=== PATIENT | male | born 1955 | race Caucasian/White ===

== ENCOUNTER 2017-11-09 00:09 | Emergency (ER) | payer OTHER ==
[~2017-11-09] VITALS: Ht 172.7 cm; Wt 164.6 kg
[2017-11-09] MEDS ORDERED: PRADAXA150 MG PO (00:40)
[2017-11-09] MEDS ORDERED: CARVEDILOL25 MG PO (00:41)
[2017-11-09] MEDS ORDERED: TORSEMIDE20 M1 PO (00:43)
[2017-11-09] MEDS ORDERED: CHLORTHALID25 MG PO (00:43)
[2017-11-09] MEDS ORDERED: LISINOPRIL20 MG PO (00:44)
[2017-11-09] MEDS ORDERED: K-DUR/KLOR-CON20 MEQ PO (00:45)
[2017-11-09] MEDS ORDERED: ASPIRIN81 MG PO (00:53)
[2017-11-09] MEDS ORDERED: ALLOPURINOL100 MG PO (00:54)
[2017-11-09] MEDS ORDERED: MAGNESIUM250 M2 PO (00:55)
[2017-11-09] MEDS ORDERED: PRAVASTATIN20 MG PO (00:55)
[2017-11-09 01:28] LABS: URINE BILIRUBIN - DIPSTICK NEGATIVE (NEGATIVE); URINE BLOOD DIPSTICK NEGATIVE (NEGATIVE); URINE CLARITY CLEAR; URINE COLOR YELLOW; URINE GLUCOSE - DIPSTICK NEGATIVE (NEGATIVE); URINE KETONE NEGATIVE (NEGATIVE); URINE LEUK ESTERASE NEGATIVE (NEGATIVE); URINE NITRITE - DIPSTICK NEGATIVE (Negative); URINE PH 5.5 (4.5-8.0); URINE PROTEIN - DIPSTICK TRACE mg/dL (NEG-TRACE); URINE SPECIFIC GRAVITY 1.015; URINE UROBILINOGEN - DIPSTICK 0.2 E.U./dL (0.2)
[2017-11-09 01:39] LABS: HEMATOCRIT 29.4 % (39.0-50.0); HEMOGLOBIN 8.5 g/dl (14.0-18.0); IMMATURE GRANULOCYTES 0.4 % (0.0-1.0); MEAN CELL VOLUME 85.7 fL CALC (80.0-100.0); MEAN CORPUSCULAR HGB 24.8 pG CALC (26.0-32.0); MEAN CORPUSCULAR HGB CONC 28.9 g/L CALC (32.0-36.0); NEUT# 5.9 thou/uL (1.82-7.42); RED BLOOD COUNT 3.43 mill/uL (4.70-6.10); RED CELL DISTRI WIDTH 17.2 % (11.5-15.5)
[2017-11-09 01:49] LABS: ALBUMIN 2.6 g/dL (3.2-5.0); BILIRUBIN, TOTAL 0.6 mg/dL (0.0-1.4); CALCIUM 8.4 mg/dL (8.4-10.2); CREATININE 2.9 mg/dL (0.7-1.3); POTASSIUM 4.5 mmol/l (3.5-5.1); TOTAL PROTEIN 5.1 g/dL (6.3-8.2)
[2017-11-09 02:04] LABS: ACT PARTIAL THROMBO TIME 36.2 SECONDS (20.0-32.5); INTERNATIONAL NORMALIZED RATIO 1.3 RATIO (0.7-1.3); PROTHROMBIN TIME 14.6 SECONDS (9.0-12.5)
[2017-11-09 03:50] VITALS: BP 107/58
== END 2017-11-09 04:04 | disposition short-term general hospital (02) | DRG 292 ==
LOC: ED 00:09
PROVIDERS: Emergency Medicine
DX: I50.9 Heart failure, unspecified (principal); I25.810 Atherosclerosis of coronary artery bypass graft(s) without angina pectoris; Z95.1 Presence of aortocoronary bypass graft; I48.91 Unspecified atrial fibrillation; I12.9 Hypertensive chronic kidney disease with stage 1 through stage 4 chronic kidney disease, or unspecified chronic kidney disease; N18.9 Chronic kidney disease, unspecified; D64.9 Anemia, unspecified; N50.89 Other specified disorders of the male genital organs; R22.43 Localized swelling, mass and lump, lower limb, bilateral; R06.02 Shortness of breath; Z95.0 Presence of cardiac pacemaker

== ENCOUNTER 2019-10-12 12:50 | Inpatient (IN) | payer SELFPAY ==
[~2019-10-12] VITALS: Ht 172.7 cm; Wt 140.4 kg
[~2019-10-12 12:50] MED LIST: ALLOPURINOL100 MG PO; ASPIRIN81 MG PO; CARVEDILOL25 MG PO; CHLORTHALID25 MG PO; K-DUR/KLOR-CON20 MEQ PO; LISINOPRIL20 MG PO; MAGNESIUM250 M2 PO; PRADAXA150 MG PO; PRAVASTATIN20 MG PO; TORSEMIDE20 M1 PO
--- NOTE | 2019-10-12 13:22 | NUR ---
PT TO ROOM 5 VIA WC.
--- NOTE | 2019-10-12 14:28 | NUR ---
LARGE AMOUNT OF PUS AND FLUIDS CAME FROM TOP OF FOOT, PT IS TO HAVE IV, LABS, AND PROBABLY TO BE ADMITTED.
--- NOTE | 2019-10-12 14:28 | NUR ---
RETURN OF [id number] MLS OF PUS FROM INCISION AND DRAINAGE. 2 CM OF NECROTIC TISSUE REMOVED. WOUND CULTURES OBTAINED. PT TOLERATED PRODECURE WELL
[2019-10-12] MEDS ORDERED: BUMETANIDE2 MG PO (14:38)
[2019-10-12] MEDS ORDERED: LIPITOR40 M1 PO (14:39)
[2019-10-12] MEDS ORDERED: METOLAZONE2.5 MG PO (14:41)
[2019-10-12] MEDS ORDERED: ELIQUIS2.5 MG PO (14:42)
[2019-10-12 14:43] LABS: HEMATOCRIT 31.5 % (39.0-50.0); HEMOGLOBIN 9.9 g/dl (14.0-18.0); IMMATURE GRANULOCYTES 0.7 % (0.0-5.0); MEAN CORPUSCULAR HGB CONC 31.4 g/L CALC (32.0-36.0); NEUT# 8.81 thou/uL (1.82-7.42); RED BLOOD COUNT 3.54 mill/uL (4.70-6.10); RED CELL DISTRI WIDTH 17.9 % (11.5-15.5)
[2019-10-12 15:10] LABS: ALBUMIN 2.6 g/dL (3.2-5.0); CREATININE 2.3 mg/dL (0.7-1.3); TOTAL PROTEIN 5.6 g/dL (6.3-8.2)
[2019-10-12 15:27] LABS: BILIRUBIN, TOTAL 2.2 mg/dL (0.0-1.4)
[2019-10-12 15:28] LABS: POTASSIUM 2.4 mmol/l (3.5-5.1)
--- NOTE | 2019-10-12 15:35 | NUR ---
REPORT GIVEN TO MARIA DE JESUS KRISHNA FOR CONTINUATION OF CARE.
--- NOTE | 2019-10-12 15:40 | NUR ---
PT MOVED FROM ROOM 5 TO ROOM 10
--- NOTE | 2019-10-12 15:45 | NUR ---
RECEIVED REPORT ON PT. PT IN BR PER NAIMA. PT TO BE PLACED IN ROOM 10
--- NOTE | 2019-10-12 15:54 | NUR ---
RECEIVED PT TO ROOM 10, NO DISTRESS, BLE RED AND EDEMATOUS. DRSG TO LEFT FOOT. PULSE PALPABLE TO RIGHT FOOT. PITTING EDEMA NOTED. PER PT LEGS HAVE BEEN RED AND EDEMATOUS FOR A LONG TIME.
--- NOTE | 2019-10-12 19:30 | NUR ---
TELE BOX [id number] USE
--- NOTE | 2019-10-12 19:42 | NUR ---
Admission Note Report Given to: ANTHONY Transported by: Wheelchair X Stretcher Transported with: X Nurse Transporter XX Patent IV O2 X Fingernail Former
[2019-10-12 20:07] VITALS: BP 113/60
--- NOTE | 2019-10-12 20:19 | NUR ---
PATIENT ARRIVED TO ROOM VIA STRETCHER . PT ALERT AND ORIENTED X 4. PT USES CANE TO AMBULATE, PT GAIT MIDLY USTEADY, PT ADMITTED FOR LEFT LOWER LEG CELLUITIS, PT HAS DRESSING TO 3 SITES ON LEFT LOWER LEG. PT EDUCATED ON SAFETY AND DISEASE PROCESS. PT HAS CALL SAVAGE IN REACH, AND PT VSS.
[2019-10-13] VITALS (7 sets, daily range): BP systolic 98–108; BP diastolic 54–62
[2019-10-13 05:27] LABS: HEMATOCRIT 30.4 % (39.0-50.0); HEMOGLOBIN 9.4 g/dl (14.0-18.0); IMMATURE GRANULOCYTES 0.9 % (0.0-5.0); MEAN CELL VOLUME 87.9 fL CALC (80.0-100.0); MEAN CORPUSCULAR HGB 27.2 pG CALC (26.0-32.0); MEAN CORPUSCULAR HGB CONC 30.9 g/L CALC (32.0-36.0); NEUT# 8.28 thou/uL (1.82-7.42); RED BLOOD COUNT 3.46 mill/uL (4.70-6.10)
[2019-10-13 05:28] LABS: ALBUMIN 2.4 g/dL (3.2-5.0); BILIRUBIN, TOTAL 2.2 mg/dL (0.0-1.4); CREATININE 2.2 mg/dL (0.7-1.3); POTASSIUM 2.5 mmol/l (3.5-5.1); TOTAL PROTEIN 5.3 g/dL (6.3-8.2)
--- NOTE | 2019-10-13 07:55 | NUR ---
AWAKE ON ROUNDS. RESP NON-LABORED. LUNGS CLEAR THROUGHOUT. ABD OBESE, SOFT WITH BOWEL SOUNDS PRESENT. EDEMA OF BIALTERAL LOWER LEGS WITH PIGMENTATION DISCOLORATION AND VERY THICK SCALY SKIN. DSG TO LEFT FOOT. PERIPHERAL PULSES PALPABLE. SALINE LOCK X3, #20 IN LAC, #20 IN RH, #20 IN RAC, ALL SITE BENIGN.
--- NOTE | 2019-10-13 10:00 | NUR ---
ASSISTED UP TO RECLINER, LEGS ELEVATED WHILE UP IN CHAIR. DR DEL CID IN TO SEE PATIENT. DR LI IN ON CONSULT. DSG CHANGED TO LEFT FOOT, EXTREMELY SWOLLE PEDAL AREA WITH OPEN AREA FROM PREVIOUS I&D. REDRESSED WOUND , PACKED WITH IODOFORM GAUZE , COVERED WITH 4X4'S AND SECURED WITH KERLIX.
--- NOTE | 2019-10-13 11:49 | NUR ---
S: RUDDY NUNEZ is a 63 M who presents with Cellulitis and Abscess. He has a history of HTN, sleep apnea, pacemaker, CAD, CHF, a-fib. All medications in patient's chart were reviewed. O: VS: BP: 98/54 mmHg, P: 75 beats/min, RR: 18 breaths/min, T: 98.4 F W: 137 kg, HT: 68 in, Scr: 2.2 mg/dL, CrCl: 47 ml/min A: Blood culture is pending. Wound culture is pending. P: Patient is on Cefepime 1 gm IV 12h and Vancomycin 1 gm IV q12h. Vancomycin ordered for pharmacy to dose. Continue Vancomycin 1000 mg IV Q12H. Vancomycin trough is drawn before the 4th dose on 10/14/19 at 0430. Vancomycin goal trough is between 10-15 mcg/ml. Pharmacy will follow and or advise on antibiotics use as needed.
--- NOTE | 2019-10-13 12:10 | NUR ---
NS STARTED TO LAC IV SITE. PATIENT CONTINUES UP IN RECLINER WITH LEGS ELEVATED.
--- NOTE | 2019-10-13 14:00 | NUR ---
ASSISTED BACK TO BED.
--- NOTE | 2019-10-13 16:30 | NUR ---
IN VISITING. K RIDERS CONTINUE TO INFUSE. ADVISED PATIENT AND SPOUSE THAT CARDIOLOGY WILL CLEAR HIM FOR OR IF POTASSIUM LEVEL IS 3.5 OR GREATER PRIOR TO SURGERY.
--- NOTE | 2019-10-13 19:30 | NUR ---
PATIENT RESTING IN BED AT THIS TIME-AROUSABLE. ALERT AND ORIENTEDX3. PATIENT WITH LEFT FOOT ABCESS-DRESSING TO LEFT FOOT INTACT. ENCOURAGED PATIENT TO KEEP LLE ELVATED ON PILLOW WHEN IN BED. TELE MONITOR IN PLACE. IVF NS PATENT AND INFUSING AT 125CC/HR VIA LAC SITE. SITE APPEARS HEALTHY AT THIS TIME. SALINE LOCK TO RIGHT HAND AND RAC INTACT. PATIENT FOR OR IN AM. SAFETY PRECAUTIONS REINFORCED. CALL LIGHT IN REACH. WILL CONT TO MONITOR.
[2019-10-13 20:12] LABS: CREATININE 2.3 mg/dL (0.7-1.3)
[2019-10-13 20:29] LABS: POTASSIUM 3.2 mmol/l (3.5-5.1)
--- NOTE | 2019-10-13 20:30 | NUR ---
INFORMED CHELI KRISHNA RE: CRITICAL OF BUN OF 104
--- NOTE | 2019-10-13 20:34 | NUR ---
DR DEL CID CALLED AND INFORMED HIM OF THE BUN OF 104
--- NOTE | 2019-10-13 21:00 | NUR ---
PATIENT IS HAVING NOSE BLEEDS-STATES THAT HE HAS THEM ALL THE TIME. SPOKE WITH DR. MILLER AND ORDER TO HOLD ELIQUIS FOR TONIGHT RECIEVED-PATIENT IS ALSO FOR OR IN AM. PATIENT NOTIFIED OF THE HOLDING OF THE ELIQUIS. TELE MONITOR IN PLACE. CALL LIGHT IN REACH. WILL CONT TO MONITOR.
--- NOTE | 2019-10-13 22:30 | NUR ---
PATIENT RESTING IN BED-MEDICATED WITH KCL 20 MEQ PO AND WITH PERCOCET FOR LEFT FOOT PAIN. CALL LIGHT IN REACH. WILL CONT TO MONITOR.
[2019-10-14] VITALS (12 sets, daily range): BP systolic 86–120; BP diastolic 48–76
--- NOTE | 2019-10-14 02:58 | NUR ---
PATIENT RESTING IN BED. NPO FOR ORTHIS MORNING. PATIENT REFUSING TO GET PRE-OP SHOWER AT THIS TIME-STATES THAT HIS ASSISTED HIM WITH BATH YESTERDAY. IVF PATENT AND INFUSING VIA LEFT AC AT 125CC/HR. CALL LIGHT IN REACH. WILL CONT TO MONITOR.
--- NOTE | 2019-10-14 05:09 | NUR ---
PATIENT RESTING IN BED-DRESSING TO LEFT FOOT FOUND OFF-MODERATE AMT OF SEROUS FLUID NOTED ON OLD DRESSING. NEW DRESSING TO LEFT FOOT APPLIED-PACKING, 4X4 AND SECURED WITH KERLIX GAUZE WRAP. PATIENT CONT TO REFUSE PRE-OP SHOWER. STATES THAT HE WANTS TO LAY DOWN. IVF PATENT AND INFUSING VIA LAC SITE AT 125CC/HR. SITE REMAINS HEALTHY. IV SITE TO RIGHT D/C'ED AFTER FOUND DISLODGED. REMAINS NPO FOR OR TODAY. CALL LIGHT IN REACH.WILL CONT TO MONITOR.
[2019-10-14 05:10] LABS: ALBUMIN 2.4 g/dL (3.2-5.0); BILIRUBIN, TOTAL 2.4 mg/dL (0.0-1.4); CREATININE 2.2 mg/dL (0.7-1.3); POTASSIUM 3.3 mmol/l (3.5-5.1); TOTAL PROTEIN 5.3 g/dL (6.3-8.2)
--- NOTE | 2019-10-14 05:22 | NUR ---
RECIEVED CALL FROM [facility] IN LAB WITH CRITICAL BUN-107. DR. DORAN AWARE OF THE TREND. WILL CONT TO MONITOR.
--- NOTE | 2019-10-14 07:45 | NUR ---
AWAKE ON ROUNDS. FAMILY AT BEDSIDE. RESP EVEN AND UNALBORED AT REST. USING O2 AT 2 L NC. O2 SAT 94% ON 2L. LUNGS CELAR. ABD LARGE,S OFT WITH BOWEL SOUNDS. PATIENT AMBULATES TO BR TO VOID. BLE GROSSLY EDEMATOUS, WITH THICK SCALY SKIN AND PIGMENTATION CHANGES. PERIPHERAL PULSES WEAKLY PALPABLE. DSG IN PLACE TO LEFT FOOT. NS INFUSING TO RH IV SITE AT 125 ML/HR, SITE BENIGN. CALL SAVAGE IN REACH. REMINDED OF NPO STATUS FOR SURGERY TODAY.
--- NOTE | 2019-10-14 08:00 | NUR ---
INFORMED D NICK/MEL OF PATIENT POTASSIUM LEVEL OF 3.3. SHE WILL DISCUSS WITH DR BAIG FAR GIVING CARDIAC CLEARANCE FOR SURGERY.
--- NOTE | 2019-10-14 09:00 | NUR ---
E MERVIN/MEL IN DISCUSED POTASSIUM LEVEL OF 3.3. NEW ORDERS RECEIVED.
--- NOTE | 2019-10-14 09:11 | NUR ---
20 KCL/100 ML NS STARTED TO RUN OVER 2 HOURS. EXPLAINED TO PATIENT NEED FOR K POTASSIUM LEVEL TO BE WNL FOR SURGERY. COOL PACKS TO IV SITE.
--- NOTE | 2019-10-14 11:30 | NUR ---
Coretta SPAULDING FINISHED. INFORMED D KJKOS/CLINICAL PHARMACY COORDINATOR OF COMPLETION OF K SUPPLEMENT. PATIENT IS CLEARED FOR SURGERY FROM CARDIOLOGY STANDPOINT.
--- NOTE | 2019-10-14 12:30 | NUR ---
PATIENT TO OR VIA BED.
--- NOTE | 2019-10-14 13:06 | NUR ---
S: RUDDY NUNEZ is a 63 M who presents with cellulitis and abscess of foot with staph aureus. He has a history of HTN, sleep apnea, pacemaker, CAD, CHF, Afib. All medications in patient's chart were reviewed. O: VS: BP 129/60 mmHg, P 78 bpm, RR 24 bpm, T 97.1 W 137 kg, HT 68 in, Scr= 2.2 mg/dL, CrCl= 47.2 ml/min Vancomycin trough: 17 ug/mL A: Blood culture is pending, shows no growth. Wound culture shows abundant Staphylococcus Aureus, sensitive to vancomycin and oxacillin. P: Patient is on cefepime 1 gm IV q12h and vancomycin 1 gm IV q12h. Vancomycin ordered for pharmacy to dose. Decrease Vancomycin dose to 750 mg IV Q12H. Vancomycin trough is drawn before the 4th dose on 10/16 at 4:30. Vancomycin goal trough is between 10-15 mcg/ml. Pharmacy will follow and or advise on antibiotics use as needed.
--- NOTE | 2019-10-14 17:35 | NUR ---
RETURNED FROM OR VIA BED. DROWSY BUT ORIENTED. LEFT FOOT WITH BULKY DSG SECURED WITH ANGY WRAP. CMS ADEQUATE. IV IN RH WITH NS AT 125 ML/HR. TELEMTRY AFIB/PACED WITH OCC PVC'S.
--- NOTE | 2019-10-14 20:00 | NUR ---
PATIENT RESTING IN BED-DROWSY BUT AROUSEABLE. ORIENTEDX3. IVF NS PATENT AND INFUSING VIA RIGHT HAND AT 125CC/HR. SITE APPEARS HEALTHY AT THIS TIME. URINE SPEC OBTAINED AND SENT TO LAB. DRESSING TO LEFT FOOT INTACT AND SEURED WITH ANGY WRAP. TELE MONITOR IN PLACE. SKIN COLOR IS JAUNDICE. SAFETY PRECAUTIONS REINFORCED, CALL LIGHT IN REACH. WILL CONT TO MONITOR.
[2019-10-14 20:58] LABS: URINE BILIRUBIN - DIPSTICK NEGATIVE (NEGATIVE); URINE BLOOD DIPSTICK NEGATIVE (NEGATIVE); URINE CLARITY CLEAR; URINE COLOR YELLOW; URINE GLUCOSE - DIPSTICK NEGATIVE (NEGATIVE); URINE KETONE NEGATIVE (NEGATIVE); URINE LEUK ESTERASE NEGATIVE (Negative); URINE NITRITE - DIPSTICK NEGATIVE (Negative); URINE PH 5.5 (4.5-8.0); URINE PROTEIN - DIPSTICK 30 mg/dL (NEG-TRACE); URINE SPECIFIC GRAVITY >=1.030; URINE UROBILINOGEN - DIPSTICK 0.2 E.U./dL (0.2)
[2019-10-14 21:01] LABS: URINE RBC 0-2 RBC/hpf (0-5); URINE WBC 0-2 WBC/hpf (0-5)
--- NOTE | 2019-10-15 00:25 | NUR ---
PATIENT RESTING IN BED POSITIONED ON RIGHT SIDE. APPEARS SLEEPING WITH HIS EYES CLOSED. RESP ARE EVEN AND UNLABORED. CALL LIGHT IN REACH. WILL CONT TO MONITOR.
--- NOTE | 2019-10-15 00:48 | NUR ---
PATIENT MEDICATED FOR PAIN ORDERED. PROVIDED WITH SODA PER PAIN REQUEST. IV ANCEF INFUSING VIA RIGHT HAND ORDERED. CALL LIGHT IN REACH. WILL CONT TO MONITOR.
[2019-10-15 03:45] VITALS: BP 108/70
[2019-10-15 05:42] LABS: HEMATOCRIT 34.6 % (39.0-50.0); HEMOGLOBIN 10.4 g/dl (14.0-18.0); MEAN CORPUSCULAR HGB 27.7 pG CALC (26.0-32.0); MEAN CORPUSCULAR HGB CONC 30.1 g/L CALC (32.0-36.0); RED BLOOD COUNT 3.76 mill/uL (4.70-6.10); RED CELL DISTRI WIDTH 18.2 % (11.5-15.5)
[2019-10-15 06:04] LABS: ALBUMIN 2.6 g/dL (3.2-5.0); CREATININE 2.6 mg/dL (0.7-1.3); POTASSIUM 3.7 mmol/l (3.5-5.1)
--- NOTE | 2019-10-15 06:26 | NUR ---
PATIENT WAS MEDICATED EARLIER WITH PERCOCET FOR LEFT FOOT PAIN. NOW COM[PLAINING OF NAUSEA AND VOMITTING. STATES THAT THIS ALSO HAPPENED LAST NIGHT AFTER BEING MEDICATED BUT HE DID NOT NOTIFY STAFF. REINFORCED PATIENT TO CALL WHEN THIS SHOULD OCCUR. PROVIDED WITH EMESIS BAG AND COOL CLOTH. WILL MEDICATE WHEN ABLE. CALL LIGHT IN REACH. WILL CONT TO MONITOR.
[2019-10-15 08:00] VITALS: BP 105/54
--- NOTE | 2019-10-15 08:00 | NUR ---
PT ALERT AND ORIENTED X 3. LUNGS CLEAR, RA. LEFT DORSAL FOOT WOUND WRAPPED, ANGY APPLIES COMPRESSION. NO COMPLAINT OF PAIN, NO DISTRESS NOTED.
[2019-10-15] MEDS ORDERED: PERCOCET 5/325M1 TAB PO (09:32)
[2019-10-15] MEDS ORDERED: KEFLEX500 MG PO (09:37)
[2019-10-15 11:21] VITALS: BP 95/57
--- NOTE | 2019-10-15 12:00 | NUR ---
PT TO U/S FOR RENAL U/S. PT SEEN BY DR LI AND DR BLAIR TODAY, PLAN IS FOR DISCHARGE THIS AFTERNOON. WOUND CARE PHYSICIAN DR ROBERTS ALSO EVALUATED PT TODAY.
[2019-10-15 15:47] VITALS: BP 92/56
--- NOTE | 2019-10-15 16:52 | NUR ---
PT HAS BEEN DISCHARGED TO HOME. PT WITH IVs REMOVED, TELEMETRY OFF, PT VERBALIZES UNDERSTANDING OF DC INSTRUCTIONS. PT WAS TAKEN TO VEHICLE BY WHEELCHAIR TO VEHICLE.
[2019-10-27] MEDS ORDERED: CLARITIN-D1 TA2 PO (09:05)
== END 2019-10-15 16:34 | disposition home or self-care (01) | DRG 571 ==
LOC: ED 12:50 → ED-I 13:31 → ED 13:31 → ED-I 16:03 → ED 16:27 → MS2 16:28
PROVIDERS: Internal Medicine Nephrology; Nurse Practitioner Family; ADMIT Internal Medicine; ATTEND Internal Medicine
PROC: 0H9NXZZ Drainage of Left Foot Skin, External Approach (ICD-10-PCS; principal; 2019-10-12)
PROC: 0JBR0ZZ Excision of Left Foot Subcutaneous Tissue and Fascia, Open Approach (ICD-10-PCS; 2019-10-14)
PROC: 0H9LXZZ Drainage of Left Lower Leg Skin, External Approach (ICD-10-PCS; 2019-10-14)
DX: L02.612 Cutaneous abscess of left foot (principal); L03.116 Cellulitis of left lower limb; E87.1 Hypo-osmolality and hyponatremia; I13.0 Hypertensive heart and chronic kidney disease with heart failure and stage 1 through stage 4 chronic kidney disease, or unspecified chronic kidney disease; N18.4 Chronic kidney disease, stage 4 (severe); I50.22 Chronic systolic (congestive) heart failure; I48.20 Chronic atrial fibrillation, unspecified; L02.416 Cutaneous abscess of left lower limb; Z68.42 Body mass index [BMI] 45.0-49.9, adult; N17.9 Acute kidney failure, unspecified; I42.9 Cardiomyopathy, unspecified; E87.6 Hypokalemia; I25.10 Atherosclerotic heart disease of native coronary artery without angina pectoris; B95.61 Methicillin susceptible Staphylococcus aureus infection as the cause of diseases classified elsewhere; G47.33 Obstructive sleep apnea (adult) (pediatric); E66.01 Morbid (severe) obesity due to excess calories; E78.5 Hyperlipidemia, unspecified; E86.9 Volume depletion, unspecified; D64.9 Anemia, unspecified; E83.39 Other disorders of phosphorus metabolism; L97.529 Non-pressure chronic ulcer of other part of left foot with unspecified severity; I83.92 Asymptomatic varicose veins of left lower extremity; Z95.828 Presence of other vascular implants and grafts; Z95.0 Presence of cardiac pacemaker; Z95.1 Presence of aortocoronary bypass graft
CPT/HCPCS: J0131; J0692; J1100; J3370

== ENCOUNTER 2019-10-16 15:56 | Emergency (ER) | payer SELFPAY ==
[~2019-10-16] VITALS: Ht 172.7 cm; Wt 142.0 kg
[~2019-10-16 15:56] MED LIST changes: +BUMETANIDE2 MG PO; +ELIQUIS2.5 MG PO; +KEFLEX500 MG PO; +LIPITOR40 M1 PO; +METOLAZONE2.5 MG PO; +PERCOCET 5/325M1 TAB PO
[2019-10-16 16:50] VITALS: BP 117/54
[2019-10-27] MEDS ORDERED: CLARITIN-D1 TA2 PO (09:05)
== END 2019-10-16 16:50 | disposition home or self-care (01) | DRG 951 ==
LOC: ED 15:56
DX: Z48.01 Encounter for change or removal of surgical wound dressing (principal); N18.9 Chronic kidney disease, unspecified

== ENCOUNTER 2019-11-15 | Emergency (ER) | payer SELFPAY ==
[~2019-11-15] MED LIST changes: +CLARITIN-D1 TA2 PO
[2019-11-15 14:13] LABS: HEMATOCRIT 29.5 % (39.0-50.0); HEMOGLOBIN 9.6 g/dl (14.0-18.0); IMMATURE GRANULOCYTES 0.7 % (0.0-5.0); MEAN CELL VOLUME 86.5 fL CALC (80.0-100.0); MEAN CORPUSCULAR HGB 28.2 pG CALC (26.0-32.0); MEAN CORPUSCULAR HGB CONC 32.5 g/L CALC (32.0-36.0); NEUT# 5.09 thou/uL (1.82-7.42); RED BLOOD COUNT 3.41 mill/uL (4.70-6.10); RED CELL DISTRI WIDTH 18.3 % (11.5-15.5)
[2019-11-15 14:29] LABS: ALBUMIN 2.6 g/dL (3.2-5.0); TOTAL PROTEIN 5.1 g/dL (6.3-8.2)
[2019-11-15 14:56] LABS: BILIRUBIN, TOTAL 3.4 mg/dL (0.0-1.4); CREATININE 2.5 mg/dL (0.7-1.3); POTASSIUM 2.4 mmol/l (3.5-5.1)
[2019-11-15 15:05] LABS: INTERNATIONAL NORMALIZED RATIO 1.3 RATIO (0.7-1.3); PROTHROMBIN TIME 13.2 SECONDS (9.0-12.5)
[2019-11-15 15:51] LABS: URINE BILIRUBIN - DIPSTICK NEGATIVE (NEGATIVE); URINE BLOOD DIPSTICK NEGATIVE (NEGATIVE); URINE COLOR YELLOW; URINE GLUCOSE - DIPSTICK NEGATIVE (NEGATIVE); URINE KETONE NEGATIVE (NEGATIVE); URINE LEUK ESTERASE NEGATIVE (NEGATIVE); URINE NITRITE - DIPSTICK NEGATIVE (Negative); URINE PROTEIN - DIPSTICK NEGATIVE (NEG-TRACE); URINE UROBILINOGEN - DIPSTICK 0.2 E.U./dL (0.2)
== END 2019-11-15 19:34 | DRG 641 ==
PROVIDERS: Emergency Medicine
PROC: 0T9B70Z Drainage of Bladder with Drainage Device, Via Natural or Artificial Opening (ICD-10-PCS; principal; 2019-11-15)
DX: E87.1 Hypo-osmolality and hyponatremia (principal); E87.6 Hypokalemia; I50.9 Heart failure, unspecified; N18.9 Chronic kidney disease, unspecified; Z79.01 Long term (current) use of anticoagulants; I48.91 Unspecified atrial fibrillation; Z95.1 Presence of aortocoronary bypass graft; Z95.0 Presence of cardiac pacemaker

== ENCOUNTER 2020-04-25 18:16 | Emergency (ER) | payer MEDICAID ==
[~2020-04-25] VITALS: Ht 167.6 cm; Wt 100.0 kg
[2020-04-25 19:31] LABS: HEMATOCRIT 30.8 % (39.0-50.0); HEMOGLOBIN 9.3 g/dl (14.0-18.0); IMMATURE GRANULOCYTES 0.5 % (0.0-5.0); MEAN CORPUSCULAR HGB 28.2 pG CALC (26.0-32.0); MEAN CORPUSCULAR HGB CONC 30.2 g/dL CAL (32.0-36.0); NEUT# 11.53 thou/uL (1.82-7.42); RED BLOOD COUNT 3.3 mill/uL (4.70-6.10); RED CELL DISTRI WIDTH 20.5 % (11.5-15.5)
[2020-04-25 19:32] LABS: MEAN CELL VOLUME 93.3 fL CALC (80.0-100.0)
[2020-04-25 19:49] LABS: ACT PARTIAL THROMBO TIME 33.4 SECONDS (20.0-32.5); INTERNATIONAL NORMALIZED RATIO 1.2 RATIO (0.7-1.3); PROTHROMBIN TIME 12.6 SECONDS (9.0-12.5)
[2020-04-25 19:50] LABS: ALBUMIN 2.9 g/dL (3.2-5.0); TOTAL PROTEIN 5.6 g/dL (6.3-8.2)
[2020-04-25 19:52] LABS: BILIRUBIN, TOTAL 1.6 mg/dL (0.0-1.4); CREATININE 4.9 mg/dL (0.7-1.3); POTASSIUM 2.9 mmol/l (3.5-5.1)
[2020-04-25 22:24] VITALS: BP 95/33
== END 2020-04-25 22:07 | disposition left against medical advice (07) ==
LOC: ED 18:16
DX: I50.9 Heart failure, unspecified (principal); R50.9 Fever, unspecified; I95.3 Hypotension of hemodialysis; E87.1 Hypo-osmolality and hyponatremia; E87.6 Hypokalemia; N18.6 End stage renal disease; I48.91 Unspecified atrial fibrillation; S80.822A Blister (nonthermal), left lower leg, initial encounter; X58.XXXA Exposure to other specified factors, initial encounter; S81.812A Laceration without foreign body, left lower leg, initial encounter; Z95.0 Presence of cardiac pacemaker; Z95.1 Presence of aortocoronary bypass graft; Z99.2 Dependence on renal dialysis; Z91.19 Patient's noncompliance with other medical treatment and regimen; Z20.828 Contact with and (suspected) exposure to other viral communicable diseases

== ENCOUNTER 2020-06-02 15:08 | Emergency (ER) | payer MEDICAID ==
[~2020-06-02] VITALS: Ht 167.6 cm; Wt 103.0 kg
[2020-06-02 15:57] LABS: HEMATOCRIT 32.1 % (39.0-50.0); HEMOGLOBIN 9.4 g/dl (14.0-18.0); IMMATURE GRANULOCYTES 0.8 % (0.0-5.0); MEAN CELL VOLUME 94.4 fL CALC (80.0-100.0); MEAN CORPUSCULAR HGB 27.6 pG CALC (26.0-32.0); MEAN CORPUSCULAR HGB CONC 29.3 g/dL CAL (32.0-36.0); NEUT# 4.65 thou/uL (1.82-7.42); RED BLOOD COUNT 3.4 mill/uL (4.70-6.10); RED CELL DISTRI WIDTH 17.9 % (11.5-15.5)
[2020-06-02 16:16] LABS: ALBUMIN 2.9 g/dL (3.2-5.0); BILIRUBIN, TOTAL 1.5 mg/dL (0.0-1.4); TOTAL PROTEIN 5.6 g/dL (6.3-8.2)
[2020-06-02 16:29] LABS: CREATININE 2.9 mg/dL (0.7-1.3)
[2020-06-02 16:37] LABS: INTERNATIONAL NORMALIZED RATIO 1.2 RATIO (0.7-1.3); PROTHROMBIN TIME 11.8 SECONDS (9.0-12.5)
[2020-06-02] MEDS ORDERED: TRAZODONE50 MG PO (16:57)
[2020-06-02] MEDS ORDERED: GABAPENTIN100 MG PO (16:58)
[2020-06-02] MEDS ORDERED: MIDODRINE10 MG PO (17:00)
[2020-06-02] MEDS ORDERED: CLOPIDOGREL75 MG PO (17:01)
[2020-06-02] MEDS ORDERED: AMIODARONE200 MG PO (17:02)
[2020-06-02 18:32] LABS: C-REACTIVE PROTEIN 2.5 mg/dL (0-0.9)
[2020-06-02 19:45] VITALS: BP 93/50
== END 2020-06-02 19:45 ==
LOC: ED 15:08
PROVIDERS: Student in an Organized Health Care Education/Training Program
DX: U07.1 COVID-19 (principal); J12.89 Other viral pneumonia; R49.22 Hyponasality; E87.6 Hypokalemia; R44.1 Visual hallucinations; N18.6 End stage renal disease; I48.91 Unspecified atrial fibrillation; I25.10 Atherosclerotic heart disease of native coronary artery without angina pectoris; Z79.01 Long term (current) use of anticoagulants; Z95.1 Presence of aortocoronary bypass graft; Z95.2 Presence of prosthetic heart valve; Z95.0 Presence of cardiac pacemaker; Z99.2 Dependence on renal dialysis

== ENCOUNTER 2020-06-18 07:09 | Emergency (ER) | payer MEDICAID ==
[~2020-06-18] VITALS: Ht 167.6 cm; Wt 103.0 kg
[~2020-06-18 07:09] MED LIST changes: +AMIODARONE200 MG PO; +CLOPIDOGREL75 MG PO; +GABAPENTIN100 MG PO; +MIDODRINE10 MG PO; +TRAZODONE50 MG PO
[2020-06-18 08:15] LABS: ALBUMIN 2.4 g/dL (3.2-5.0); BILIRUBIN, TOTAL 1.4 mg/dL (0.0-1.4); CREATININE 3.8 mg/dL (0.7-1.3); POTASSIUM 3.3 mmol/l (3.5-5.1); TOTAL PROTEIN 4.5 g/dL (6.3-8.2)
[2020-06-18 08:16] LABS: ACT PARTIAL THROMBO TIME 32.2 SECONDS (20.0-32.5); INTERNATIONAL NORMALIZED RATIO 1.2 RATIO (0.7-1.3); PROTHROMBIN TIME 11.9 SECONDS (9.0-12.5)
[2020-06-18 08:20] LABS: HEMATOCRIT 31.8 % (39.0-50.0); HEMOGLOBIN 9.2 g/dl (14.0-18.0); IMMATURE GRANULOCYTES 1.3 % (0.0-5.0); MEAN CELL VOLUME 91.9 fL CALC (80.0-100.0); MEAN CORPUSCULAR HGB 26.6 pG CALC (26.0-32.0); MEAN CORPUSCULAR HGB CONC 28.9 g/dL CAL (32.0-36.0); NEUT# 9.21 thou/uL (1.82-7.42); RED CELL DISTRI WIDTH 18.2 % (11.5-15.5)
[2020-06-18 08:41] LABS: RED BLOOD COUNT 3.46 mill/uL (4.70-6.10)
[2020-06-18] MEDS ORDERED: PROTONIX40 M2 PO (09:35)
[2020-06-18 13:47] VITALS: BP 84/50
== END 2020-06-18 13:48 | disposition short-term general hospital (02) ==
LOC: ED 07:09
PROVIDERS: Student in an Organized Health Care Education/Training Program
DX: U07.1 COVID-19 (principal); I13.2 Hypertensive heart and chronic kidney disease with heart failure and with stage 5 chronic kidney disease, or end stage renal disease; I50.23 Acute on chronic systolic (congestive) heart failure; N18.6 End stage renal disease; R41.82 Altered mental status, unspecified; I95.9 Hypotension, unspecified; I48.91 Unspecified atrial fibrillation; Z99.2 Dependence on renal dialysis; I25.10 Atherosclerotic heart disease of native coronary artery without angina pectoris; Z95.1 Presence of aortocoronary bypass graft; Z95.2 Presence of prosthetic heart valve; Z95.0 Presence of cardiac pacemaker